=== PATIENT | female | born 1945 | race Caucasian/White ===

== ENCOUNTER 2017-09-05 11:08 | Emergency (ER) | payer MEDICARE, BC | END 2017-09-05 11:40 | disposition home or self-care (01) | LOC: SCSER 11:08 | DX: M10.9 Gout, unspecified (principal); E03.9 Hypothyroidism, unspecified | CPT/HCPCS: 99283 ==

== ENCOUNTER 2021-11-28 14:10 | Outpatient (CLI) | payer MEDICARE, BC | END 2021-11-28 14:11 | disposition home or self-care (01) | LOC: SCSMRI 14:10 | PROVIDERS: ATTEND Orthopaedic Surgery | DX: S83.411S Sprain of medial collateral ligament of right knee, sequela (principal); M23.241 Derangement of anterior horn of lateral meniscus due to old tear or injury, right knee; M23.251 Derangement of posterior horn of lateral meniscus due to old tear or injury, right knee ==